=== PATIENT | female | born 1975 | race Caucasian/White ===

== ENCOUNTER 2021-10-24 13:47 | Observation (INO) ==
[2021-10-24 16:20] LABS: BASOPHILS # (AUTO) 0.1 X10^3/uL (0.0-0.1); EOSINOPHILS # (AUTO) 0.2 x10^3/uL (0.0-0.2); EOSINOPHILS % (AUTO) 2.2 % (0.9-2.9); HEMATOCRIT 36.3 % (36.0-47.0); HEMOGLOBIN 12.5 g/dL (12.0-16.0); LYMPHOCYTES # (AUTO) 3.3 X10^3/uL (1.3-2.9); LYMPHOCYTES % (AUTO) 33.7 % (21.0-51.0); MEAN CORPUSCULAR HEMOGLOBIN 30.8 pg (27.0-34.0); MEAN CORPUSCULAR HGB CONC 34.3 g/dL (33.0-35.0); MEAN CORPUSCULAR VOLUME 89.8 fL (80.0-100.0); MEAN PLATELET VOLUME 7.4 fL (7.4-11.0); MONOCYTES # (AUTO) 0.5 x10^3/uL (0.3-0.8); NEUTROPHILS # (AUTO) 5.8 x10^3/uL (2.2-4.8); NEUTROPHILS % (AUTO) 58.1 % (42.0-75.0); RED BLOOD COUNT 4.05 X10^6/uL (3.5-5.4); RED CELL DISTRIBUTION WIDTH 14.1 % (11.6-16.5); WHITE BLOOD COUNT 9.9 X10^3/uL (3.6-10.0)
[2021-10-24 16:29] LABS: ALANINE AMINOTRANSFERASE 34 Units/L (12-78); ALBUMIN 3.2 g/dL (3.4-5.0); ALKALINE PHOSPHATASE 207 Units/L (46-116); AMYLASE 25 Units/L (25-115); ASPARTATE AMINO TRANSFERASE 15 Units/L (15-37); BLOOD UREA NITROGEN 13 mg/dL (7-18); CALCIUM 8.6 mg/dL (8.5-10.1); CARBON DIOXIDE 28.2 mmol/L (21-32); CHLORIDE 103 mmol/L (98-107); COR CA(FOR HYPOALB) 9.2 mg/dL (8.5-10.1); CREATININE 0.66 mg/dL (0.55-1.02); LIPASE 78 Units/L (73-393); SODIUM 140 mmol/L (136-145); TOTAL PROTEIN 7.8 g/dL (6.4-8.2); eGFR NON BLACK RACES > 60 (>60)
[2021-10-24 16:35] VITALS: BMI 34.3
[2021-10-24] MEDS: D5 1/2 NS 1,000 ML 1,000 ML IV SCH ×2 (17:26→23:35)
[2021-10-24] MEDS: PROTONIX INJ 40 MG VIAL IVP SCH (17:26)
[2021-10-24] MEDS: LEVAQUIN PREMIX IV 500 MG 500 MG/100 ML BAG IV SCH (17:26)
[2021-10-24] MEDS: DILAUDID INJ IVP PRN (19:44)
--- NOTE | 2021-10-25 01:47 | RAD ---
HISTORYPRE-OP FOR GB REMOVAL SURGERYSTUDYCHEST, 1 VIEWCOMPARISONNone.TECHNIQUEA single frontal view of the chest was obtained.FINDINGSThe heart is normal in size. There is no focal infiltrate. There is no effusion. There is no pneumothorax. The osseous structures are intact.IMPRESSIONNo focal infiltrate or effusion.Electronically signed by: Nova Awad (Oct 25, 2021 01:44:28)
[2021-10-25] MEDS: D5 1/2 NS 1,000 ML 1,000 ML IV SCH ×4 (07:52→23:43)
[2021-10-25] MEDS ORDERED: FENTANYL VIAL INJ 100 mcg ONE ×2 (08:20→09:36)
[2021-10-25] MEDS ORDERED: VERSED ONE (08:20)
[2021-10-25] MEDS ORDERED: TORADOL 30 MG VIAL ONE (08:21)
[2021-10-25] MEDS ORDERED: DILAUDID INJ ONE (08:21)
[2021-10-25] MEDS ORDERED: DIPRIVAN VIAL 20 ML ONE (08:21)
[2021-10-25] MEDS ORDERED: ZOFRAN INJ 4 MG VIAL ONE (08:21)
[2021-10-25] MEDS ORDERED: PEPCID 20 MG VIAL ONE (08:21)
[2021-10-25] MEDS ORDERED: OFIRMEV IV 1000 MG VIAL 1,000 MG/100 ML VIAL IV ONE (08:21)
[2021-10-25] MEDS ORDERED: BRIDION ONE (08:21)
[2021-10-25] MEDS ORDERED: ZEMURON 100 MG VIAL ONE (08:21)
[2021-10-25] MEDS ORDERED: NS 1,000 ML IV 1,000 ML ONE (08:42)
[2021-10-25] MEDS ORDERED: ANCEF VIAL 1 GRAM ONE (08:42)
[2021-10-25] MEDS ORDERED: DUONEB 0.5 MG/3 MG (3 mL) NEB ONE (08:42)
[2021-10-25] MEDS ORDERED: NS 100 ML IV 100 ML ONE (08:43)
[2021-10-25] MEDS ORDERED: REGLAN INJ 10 MG VIAL ONE (08:48)
[2021-10-25] MEDS: LEVAQUIN PREMIX IV 500 MG 500 MG/100 ML BAG IV SCH (09:05)
[2021-10-25] MEDS: PROTONIX INJ 40 MG VIAL IVP SCH (09:05)
[2021-10-25] MEDS ORDERED: BACTROBAN TOPICAL OINT ONE (09:09)
[2021-10-25] MEDS ORDERED: POLYMYXIN B SULFATE ONE (09:09)
[2021-10-25] MEDS ORDERED: XYLOCAINE JELLY TOP ONE (09:20)
[2021-10-25] MEDS ORDERED: SUPRANE ONE (09:20)
[2021-10-25] MEDS ORDERED: ZOFRAN INJ 4 MG VIAL IVP PRN (09:45)
[2021-10-25] MEDS ORDERED: DILAUDID INJ IVP PRN (09:45)
[2021-10-25] MEDS ORDERED: PHENERGAN INJ 25 MG IM PRN (09:45)
[2021-10-25] MEDS ORDERED: BARHEMSYS INJ IVP PRN (09:45)
[2021-10-25] MEDS ORDERED: BENADRYL INJ 50 MG VIAL IVP PRN (09:45)
[2021-10-25] MEDS ORDERED: REGLAN INJ 10 MG VIAL IVP PRN (09:45)
[2021-10-25] MEDS: ZOFRAN INJ 4 MG VIAL IVP PRN (15:54)
[2021-10-25] MEDS: DILAUDID INJ IVP PRN ×2 (16:20→20:03)
[2021-10-26] MEDS: ZOFRAN INJ 4 MG VIAL IVP PRN (00:03)
[2021-10-26] MEDS: DILAUDID INJ IVP PRN ×2 (00:03→03:57)
[2021-10-26 06:16] LABS: BASOPHILS # (AUTO) 0.1 X10^3/uL (0.0-0.1); BASOPHILS % (AUTO) 0.8 % (0.2-1.0); EOSINOPHILS # (AUTO) 0.1 x10^3/uL (0.0-0.2); EOSINOPHILS % (AUTO) 0.7 % (0.9-2.9); HEMATOCRIT 34.3 % (36.0-47.0); HEMOGLOBIN 11.6 g/dL (12.0-16.0); LYMPHOCYTES # (AUTO) 2.4 X10^3/uL (1.3-2.9); LYMPHOCYTES % (AUTO) 25.7 % (21.0-51.0); MEAN CORPUSCULAR HEMOGLOBIN 30.6 pg (27.0-34.0); MEAN CORPUSCULAR HGB CONC 33.9 g/dL (33.0-35.0); MEAN CORPUSCULAR VOLUME 90.2 fL (80.0-100.0); MEAN PLATELET VOLUME 7.4 fL (7.4-11.0); MONOCYTES # (AUTO) 0.6 x10^3/uL (0.3-0.8); MONOCYTES % (AUTO) 6.5 % (0.0-13.0); NEUTROPHILS # (AUTO) 6.3 x10^3/uL (2.2-4.8); NEUTROPHILS % (AUTO) 66.3 % (42.0-75.0); RED CELL DISTRIBUTION WIDTH 13.9 % (11.6-16.5); WHITE BLOOD COUNT 9.5 X10^3/uL (3.6-10.0)
[2021-10-26] MEDS: D5 1/2 NS 1,000 ML 1,000 ML IV SCH (07:45)
[2021-10-26 07:58] VITALS: BP 169/80
[2021-10-26] MEDS: PROTONIX INJ 40 MG VIAL IVP SCH (08:58)
[2021-10-26] MEDS: LEVAQUIN PREMIX IV 500 MG 500 MG/100 ML BAG IV SCH (08:59)
== END 2021-10-26 11:10 | disposition home or self-care (01) ==
LOC: MED/SURG
PROVIDERS: ADMIT Surgery; ATTEND Surgery
DX: K80.12 Calculus of gallbladder with acute and chronic cholecystitis without obstruction; R11.2 Nausea with vomiting, unspecified; K82.8 Other specified diseases of gallbladder; R94.31 Abnormal electrocardiogram [ECG] [EKG]; R10.84 Generalized abdominal pain